=== PATIENT | male | born 1950 | race Caucasian/White ===

== ENCOUNTER 2016-09-28 22:04 | Emergency (ER) | payer OTHER ==
[~2016-09-28 22:04] MED LIST: *UNABLE1; AMARYL4 PO; ASAB PO; BYETTA10 SC; CEFT5 PO; COREG25 PO; CRESTOR5 MG PO; CYANO1000T PO; DSS PO; FLOMAX4 PO; GLUCOPHAGE1000 MG PO; GLUCOTROL5 PO; GLUCPH PO; KLOR-CON 1010 MEQ PO; KLOR-CON M2020 MEQ PO; L20 PO; L40 PO; LEVEMIR SC; LEVOTHYROXIN50 MCG PO; LISINOPRIL40 MG PO; LORT7 PO; MONO20 PO; MUSCLE RUB TOP; NEUR100 PO; NORCO1 TA2 PO; NOVOLOG SC; PRIM250 PO; PRIN10 PO; PRIN20 PO; SIN25 PO; SINCR25100 PO; STARLIX120 PO; STARLIX60 PO; SYN.05 PO; VICODIN ES1 TAB PO; VITAMIN D31000 UNIT PO; VYTORIN 10/20 T1 TAB PO; ZOCOR40 PO; ZOL100 PO; ZOL50 PO; [UNRECOGNIZED DRUG - CODE] PO
[2016-09-28 22:28] LABS: INTERNATIONAL NORMAL RATI 1.1 UNITS (-); PARTIAL THROMBO TIME 27.8 SEC (22.5-37.2); PROTIME (NOT ORD) 13.8 SEC (12.0-14.5)
[2016-09-28 22:37] LABS: CALCIUM, SERUM 8.9 MG/DL (8.5-10.4); CHEST PAIN PROFILE TAT 0 Hrs 22 Mins; CHLORIDE, SERUM 102 MMOL/L (96-112); CO2 (CARBON DIOXIDE) 27 MMOL/L (24-34); CREATININE 0.82 MG/DL (0.70-1.30); GFR AFRICAN AMERICAN 108 ML/MIN (>=60); GFR NON AFRICAN AMERICAN 93 ML/MIN (>=60); POTASSIUM, SERUM 4.2 MMOL/L (3.5-5.3); SODIUM, SERUM 136 MMOL/L (135-148); TROPONIN I <0.02 NG/ML (<0.05)
[2016-09-28 22:39] LABS: BUN (BLOOD UREA NITROGEN) 29 MG/DL (6-23); GLUCOSE, SERUM 273 MG/DL (60-99)
[2016-09-28 23:45] LABS: BASOPHILS 0.5 %; BASOPHILS ABSOLUTE 0.04 10/3/uL (0.0-0.16); EOSINOPHILS 2.3 %; EOSINOPHILS ABSOLUTE 0.18 10/3/uL (0.0-0.53); IMMATURE GRANULOCYTES 0.1 %; IMMATURE GRANULOCYTES ABSOLUTE 0.01 10/3/uL (0.0-0.11); LYMPHOCYTES 21.2 %; LYMPHOCYTES ABSOLUTE 1.66 10/3/uL (0.67-4.30); MEAN CORPUSCULAR HEMOGLOB 29.8 pg (26.0-34.0); MEAN PLATELET VOLUME 9.9 fL (9.2-13.0); MONOCYTES 8.4 %; MONOCYTES ABSOLUTE 0.66 10/3/uL (0.21-1.20); NEUTROPHILS 67.5 %; NEUTROPHILS ABSOLUTE 5.27 10/3/uL (2.02-8.40); PLATELET COUNT 194 10/3/uL (150-400); RBC DISTRIBUTION WIDTH 13.8 % (12.0-16.0); RED CELL COUNT 4.49 10/6/uL (4.7-6.1); WHITE BLOOD CELLS 7.8 10/3/uL (4.5-10.5)
[2016-09-28 23:46] LABS: ER CBC TAT 1 Hrs 30 Mins; HEMATOCRIT 39.8 % (40.0-51.0); HEMOGLOBIN 13.4 g/dL (13.6-17.8); MANUAL DIFF NO %; MEAN CORPUS HGB CONC 33.7 g/dL (32.0-36.0); MEAN CORPUSCULAR VOLUME 88.6 fL (80-100)
[2016-10-04] MEDS ORDERED: ZOL100 PO (14:46)
[2016-10-04] MEDS ORDERED: PRIN20 PO (14:46)
[2016-10-04] MEDS ORDERED: STARLIX60 PO (14:46)
[2016-10-04] MEDS ORDERED: GLUCOTROL5 PO (14:47)
[2016-10-04] MEDS ORDERED: NEUR100 PO (14:47)
[2016-10-04] MEDS ORDERED: ASAB PO (14:47)
[2016-10-04] MEDS ORDERED: L20 PO (14:47)
[2016-10-04] MEDS ORDERED: SIN25 PO (14:48)
[2016-10-04] MEDS ORDERED: KLOR-CON M2020 MEQ PO (14:48)
[2016-10-04] MEDS ORDERED: PROSCAR5 PO (14:48)
[2016-10-04] MEDS ORDERED: CRESTOR5 MG PO (14:48)
[2016-10-04] MEDS ORDERED: LEVOTHYROXIN50 MCG PO (14:48)
[2016-10-04] MEDS ORDERED: LEVEMIR SC (14:49)
[2016-10-04] MEDS ORDERED: FLOMAX4 PO (14:49)
== END 2016-09-29 06:30 | disposition home or self-care (01) ==
LOC: ER 22:04
PROVIDERS: Emergency Medicine
DX: Z04.3 Encounter for examination and observation following other accident (principal); E11.9 Type 2 diabetes mellitus without complications; I10 Essential (primary) hypertension; Z86.73 Personal history of transient ischemic attack (TIA), and cerebral infarction without residual deficits; Z88.0 Allergy status to penicillin; Z79.82 Long term (current) use of aspirin; Z79.4 Long term (current) use of insulin; Z79.899 Other long term (current) drug therapy
CPT/HCPCS: 70450; 71010; 72125; 80048; 83735; 83880; 84484; 85025; 85610; 85730; 99285

== ENCOUNTER 2016-10-04 15:13 | Inpatient (IN) | payer OTHER ==
--- NOTE | ~2016-10-04 | HP ---
History And Physical [id number] [place]. [address] NAME: VALENTINA OREILLY : 52 STATUS : ADM IN [facility]#: [id number] AGE: 65 ADM/REG DATE : 10/04/16 MR#: [id number] REPORT SERV DATE: 10/04/16 DICTATED BY: ORAL SOW DATE: 10/04/16 REPORT STATUS : Draft TRANSCRIBED BY: MODL DATE: 10/04/16 DATE OF ADMISSION: 10/04/2016 HISTORY OF PRESENT ILLNESS: Mr. Oreilly is a very pleasant 65-year-old male, who basically was staying at home on his own, living alone, but for the last week, he had several falls at home on several visits to the [facility] emergency room secondary to weakness and falls. He was brought to [facility] emergency room on 09/28/2016 secondary to fall on 09/29/2016 and today, he was referred by social media director for weakness. He was at home after he fell, he was lying on the floor, and he urinated himself and there is urine smell even in the room. He saw Dr. Bose today and she recommended the patient to come to the hospital, and also after hospitalization, he will need to go to rehabilitation or placement. This was the plan since he cannot stay now alone. The patient reported when he fell he did not lose his consciousness. He was awake, he was dizzy, and he has chronic dizziness for years. His blood sugar has been controlled. Recently, he denied any chest pain or shortness of breath. He is complaining of tremor, and he said prior when he was at [facility], he had this tremor and he was placed on carbidopa/levodopa, although he did not have a diagnosis of Parkinson disease. He has tremor at rest as well as when he does some movements. OTHER MEDICAL PROBLEMS: Include cerebrovascular accident in 2014 with left-sided weakness which has resolved, hyperlipidemia, osteoarthritis, history of patent foramen ovale, hypothyroidism, obesity, history of syncopal or presyncopal spells accompanied with dizziness. On previous hospitalization, also it was mentioned that he never lost his consciousness before, history of hypertension, multiple hospitalization as well as at the [facility] in 12/2015, history of UTI in the past, history of cystoscopy for urethral stenosis done last year per Dr. Garza includes surgical history as well as history of cholecystectomy. Also, the patient has history of subclavian head enlargement versus mass on the right side according to records of Dr. Carlitos Montejo, dictated on 05/29/2014 in our computer and it was mentioned there that it is followed by Dr. Bose. FAMILY HISTORY: Positive for heart disease and cerebrovascular accidents. ALLERGIES: HE IS ALLERGIC TO PENICILLIN. SOCIAL HISTORY: The patient does not smoke. No alcohol. No recreational drug use. He is a . He lives by himself. HOME MEDICATIONS: Include aspirin 81 mg a day, carbidopa/levodopa 25/100 three times a day, finasteride 5 mg a day, furosemide 20 mg daily p.r.n., Neurontin 100 mg daily, glipizide 5 mg p.o. daily, Levemir 44 units at bedtime, levothyroxine 50 mcg a day, lisinopril 20 mg a day, Nateglinide 60 mg three times a day, potassium chloride 20 mEq daily, Crestor 5 mg a day, Zoloft 100 mg a day, and Flomax 0.4 mg a day. REVIEW OF SYSTEMS: History And Physical [address] [address] NAME: VALENTINA OREILLY : 52 STATUS : ADM IN [facility]#: [id number] AGE: 65 ADM/REG DATE : 10/04/16 MR#: [id number] REPORT SERV DATE: 10/04/16 DICTATED BY: ORAL SOW DATE: 10/04/16 REPORT STATUS : Draft TRANSCRIBED BY: CHERELLE DATE: 10/04/16 A 14-point review of systems done and negative except what is stated in the history of present illness. PHYSICAL EXAMINATION: GENERAL: Obese male, not in acute distress, resting quietly. VITAL SIGNS: His initial blood pressure was 158/61, temperature 98.2, heart rate 73, respiratory rate 14, oxygen saturation 97% on room air. HEENT: Head, atraumatic, normocephalic. Conjunctivae clear. Pupils are equal and reactive to light and accommodation. Extraocular muscles are intact. NECK: Supple. Trachea is midline. No supraclavicular or cervical lymphadenopathy. LUNGS: Diminished breath sounds bilaterally. Decreased respiratory effort secondary to obesity. CARDIOVASCULAR: Regular rate and rhythm. Point of maximal impulse not displaced. ABDOMEN: Obese, soft, nontender, nondistended. Positive normoactive bowel sounds. EXTREMITIES: No clubbing, cyanosis, or edema. NEUROLOGIC: Cranial nerves III through XII are grossly intact. Muscle strength is 5/5 bilaterally on upper extremities and 5/5 on the left lower extremity and 3+/5 on the right lower extremity. The patient reported that long time ago he had trauma on that leg and he had a bone graft when he was a child, since that time, the leg is weak. There is tremor at rest as well as on movement. This is worsening when he moves according to the patient. PSYCHIATRIC: Normal mood and affect. LABORATORY RESULTS: His sodium 139, potassium 4.1, chloride 105, carbon dioxide 28, BUN 27, creatinine 0.86, blood sugar 244, magnesium 2. Troponin less than 0.02. His BNP was checked on 09/28/2016, it was 37.7. White count 6.7, hemoglobin 13, hematocrit 38.4, platelet count 211. PT 14.3, INR 1.1. UA did not show any evidence of urinary infection. Chest x-ray was done on 09/28/2016 on his first visit to the emergency room. No focal airspace consolidation. No any abnormality. Cervical spine CT was done on 09/28/2016 on his first visit to the emergency room. It reveals no evidence of acute traumatic injury to the cervical spine, partially visualized bilateral supraclavicular adenopathy, measuring 5-4 cm on the right. This has enlarged from 3 to 2.5 cm in 2013. Current left-sided supraclavicular adenopathy, appears new since 2013. Further evaluation will be CT of the chest with IV contrast was recommended. These findings and recommendation were discussed with Dr. Bose via phone. Asymmetric increased soft tissue density, abutting the medial head of the right clavicle potentially pannus fairly similar to prior 2013 examination with underlying sternoclavicular joint degenerative changes. CT of the brain without contrast on 09/28, no acute intracranial abnormality. Mild cortical volume loss and findings compatible with mild chronic deep white matter ischemic changes. Old right periventricular white matter infarction, unchanged chronic right maxillary sinus disease. EKG on this patient showed normal sinus rhythm with a rate of 66 beats per minute, left axis deviation, left ventricular hypertrophy with mild widening of QRS complexes. Also, a second EKG was done at 1415 hours, which did not show any acute abnormality on the left axis deviation. On the first EKG which was done earlier, it showed questionable lateral injury to the chest, but it was inconsistent, it was evaluated by emergency room physician, Dr. Jones and the patient had same changes on the EKG which were on 12/15/2015 and his first troponin is negative. History And Physical [address] [address] NAME: VALENTINA OREILLY : 52 STATUS : ADM IN PAT#: [id number] AGE: 65 ADM/REG DATE : 10/04/16 MR#: [id number] REPORT SERV DATE: 10/04/16 DICTATED BY: ORAL SOW DATE: 10/04/16 REPORT STATUS : Draft TRANSCRIBED BY: CHERELLE DATE: 10/04/16 ASSESSMENT AND PLAN: 1. A 65-year-old male with past medical history of stroke as well as history of dizziness, history of multiple presyncopal episodes in the past, history of diabetes, history of bilateral supraclavicular lymphadenopathy, enlarged on the right , history of cerebrovascular accident in the past, presented with increased frequency of falls and weakness and basically he needs placement after his workup will be finished. 2. His blood pressure fluctuates, initially it was 150/60 in the emergency room, now systolic blood pressure is in 90s. We are going to give him gentle IV fluid hydration and we are going to check his blood pressure. If it will be low, we will hold his blood pressure medications. In the same time, we will check his orthostatics. 3. Tremor, question if he has Parkinson disease. He is on carbidopa/levodopa, which [facility], but he does not have diagnosis of Parkinson disease. We will ask Neurology to evaluate this. 4. Balance problems, which could be also related to Parkinson's. 5. Diabetes mellitus. We will check his hemoglobin A1c and continue his antidiabetic medications. We will do Accu-Cheks. 6. History of cerebrovascular accident in the past, but he does not have any significant neurological deficit. He recovered his CVA. 7. Bilateral supraclavicular adenopathy, present since 2012. On recent CT scan, there are enlarged lymph nodes on the right side. This was discussed with Dr. Bose according to Radiology report of Dr. Rojas. We will order records from Dr. Bose and also now which is closed by my partner, can consider to call Dr. Bose to discuss and there is a plan to do any additional workup regarding this adenopathy. 8. We will also order physical therapy. We will check his troponins. We will check his TSH and repeat his EKG and my partner will see this patient starting tomorrow morning. MG/MODL Oral Sow M.D. / [id number] CC: Allison Bose M.D.
--- NOTE | ~2016-10-04 | DS ---
Discharge Summary [facility] [address] [place]. [address] NAME: VALENTINA AMADOR : 52 STATUS : DIS IN PAT#: [id number] AGE: 65 ADM/REG DATE : 10/04/16 MR#: [id number] REPORT SERV DATE: 10/13/16 DICTATED BY: GREG ABRAHAM DATE: 10/12/16 REPORT STATUS : Draft TRANSCRIBED BY: MODL DATE: 10/12/16 ADMISSION DATE: 10/04/2016 DISCHARGE DATE: 10/12/2016 DISCHARGE DIAGNOSES: 1. Frequent falls, needing rehab. 2. Parkinson disease. 3. Hypoxic respiratory failure, with probable underlying obstructive sleep apnea. 4. Morbid obesity. 5. Hypertension. 6. Diabetes. 7. History of cerebrovascular accidents without residual deficits. 8. Bilateral supraclavicular adenopathy, status post biopsy of the right side, pathology is negative for malignancy, it is actually more suggestive of seroma. CONSULTANTS: Neurology. PROCEDURES: CT-guided biopsy of the right supraclavicular mass on 10/09/2016. HOSPITAL COURSE: This is a 65-year-old gentleman who was admitted to the hospital with frequent falls. For details, please refer to excellent H and P by Dr. Savannah Castillo. In summary, the patient was admitted and was focused on supportive care with physical therapy. The patient was seen and evaluated by Neurology who recommended strengthening exercises as well as continuing his regimen for Parkinson disease. The patient actually did well with physical therapy who recommended discharging patient to a nursing home facility. The patient was also worked up for possible lymphoma given bilateral supraclavicular mass lesions. Notably, they have been present there since 2012 with minimal change in size. However, it was went ahead and biopsied with a CT-guided biopsy. The biopsy results came back as negative for malignancy, it was also negative for amyloid tissue and it is most likely a benign seroma. This will be followed with his primary care physician. Also, the patient developed acute hypoxic respiratory failure during this hospital stay. This was most likely an unmasked obstructive sleep apnea and obesity hypoventilation syndrome. The patient was worked up for possible pneumonia as well as PE with chest x-rays and CT scans which were negative. The patient's nighttime pulse oximetry was very highly suggestive of obstructive sleep apnea. The patient will benefit most from outpatient sleep study for CPAP. The patient did admit to having had CPAP in the past. After above acute issues have been addressed, the patient is now being discharged to a nursing home facility up in [facility] for patient to be closer to his parents where he will be monitored very closely. The patient is also being discharged home with close outpatient followup instructions. DISCHARGE DISPOSITION: [facility]. Discharge Summary [address] [address] NAME: VALENTINA AMADOR : 52 STATUS : DIS IN PAT#: [id number] AGE: 65 ADM/REG DATE : 10/04/16 MR#: [id number] REPORT SERV DATE: 10/13/16 DICTATED BY: GREG ABRAHAM DATE: 10/12/16 REPORT STATUS : Draft TRANSCRIBED BY: CHERELLE DATE: 10/12/16 DISCHARGE MEDICATIONS: No changes. FOLLOWUP: Please follow up with PCP in the next one to two weeks. A total of 40 minutes spent in coordinating this patient's discharge today. DICTATED BY: Greg Abraham MD Oz/CHERELLE Greg Abraham MD / [id number] CC: MD Allison Wang M.D.
--- NOTE | ~2016-10-04 | PUL ---
[facility] [address] [place]. [address] NAME: VALENTINA AMADOR : 52 STATUS : ADM IN PAT#: [id number] AGE: 65 ADM/REG DATE : 10/04/16 MR#: [id number] REPORT SERV DATE: 10/12/16 DICTATED BY: TEJA VELASQUEZ IV DATE: 10/11/16 REPORT STATUS : Draft TRANSCRIBED BY: MODL DATE: 10/11/16 PULMONARY FUNCTION TEST OVERNIGHT OXIMETRY FINDINGS: Study was initiated on room air; however, the patient had persistently low saturations for more than 5 minutes for which 4 L of supplemental oxygen was provided. It appears that the remainder of the study was performed on 4 L. Six hours and 1 minute of data available for review. The mean oxygen saturation was 90.7%. Lowest scored saturation was 77%. The patient spent 40 minutes and 40 seconds with oxygen saturations less than 88%. There were periods of oxygen saturation variation of sawtooth pattern that varied by significantly more than 4%. These events did appear to be clustered. It was during these events that the significant desaturations occurred after applying supplemental oxygen. IMPRESSION: Significant nocturnal hypoxemia even on 4 L of supplemental oxygen. There was a pattern consistent with obstructive sleep apnea that was believed to be mild based on a desaturation index of 12 per hour. I would suggest continuing supplemental oxygen at nighttime and obtaining a formal polysomnography. ELIZA/CHERELLE Teja Velasquez IV, M.D. / [id number] CC: MD Allison Wang M.D.
--- NOTE | ~2016-10-04 | CN ---
Consultation Report [facility] [address] [place]. [address] NAME: VALENTINA AMADOR : 52 STATUS : ADM IN PAT#: [id number] AGE: 65 ADM/REG DATE : 10/04/16 MR#: [id number] REPORT SERV DATE: 10/05/16 DICTATED BY: ALKA RODRIGUEZ DATE: 10/05/16 REPORT STATUS : Draft TRANSCRIBED BY: MODL DATE: 10/05/16 NEUROLOGY CONSULTATION DATE OF CONSULTATION: 10/05/2016 REASON FOR CONSULTATION: Frequent falls. HISTORY OF PRESENT ILLNESS: The patient is a 65-year-old male who had a stroke with resultant left hemiparesis in 2014. Since that time, he mentions that he has had falls approximately 2-3 times a month. He always falls backwards. He denies any vertiginous symptoms associated with this however. He is usually standing up for a period of time and feels imbalanced and somewhat faint. He went to rehab at [facility] and was evaluated there by one of the psychiatrist. He was told that he had a rest tremor in one of his arms and was placed on carbidopa/levodopa. This seemed to help somewhat. Still during the day, he will notice that he has a tremor in one or both arms, but does not find this particularly bothersome. He does mention that he had difficulty swallowing after his stroke, but through intensive rehab seems to do fine now. He does use a walker with hand brakes and large rolling wheels for stabilization. Over the last 2-3 weeks, the patient has been falling more frequently. He fell three times last week. PAST MEDICAL HISTORY: Stroke in 2014 with resultant left-sided weakness, hyperlipidemia, osteoarthritis, patent foramina ovale, hypothyroidism, morbid obesity, presyncopal spells, "dizziness," hypertension, urinary tract infections, urethral stenosis, subclavian head enlargement versus mass, diabetes mellitus type 2, depression, tremor, BPH, and osteoarthritis. PAST SURGICAL HISTORY: Status post urethral stent placement, cholecystectomy, and cystoscopy. HOME MEDICATION: List includes: Aspirin 81 mg daily, Sinemet 25/100 mg t.i.d., Proscar 5 mg daily, Lasix 20 mg daily, Neurontin 100 mg at bedtime, Glucotrol 5 mg daily, Levemir 44 units subcu at bedtime, levothyroxine 50 mcg daily, Prinivil 20 mg daily, Starlix 60 mg t.i.d., Klor-Con 20 mEq daily, Crestor 5 mg daily, Zoloft 100 mg daily, and Flomax 0.8 mg daily. ALLERGIES: PENICILLIN. SOCIAL HISTORY: The patient is a . He lives alone. His little Eliana dog in the spring. 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 He does not smoke, drink alcohol, or use recreational drugs. FAMILY HISTORY: The patient's mother is alive, she is 84. His father is 87 and alive, but Consultation Report [address] [place]. [address] NAME: VALENTINA AMADOR : 52 STATUS : ADM IN [facility]#: [id number] AGE: 65 ADM/REG DATE : 10/04/16 MR#: [id number] REPORT SERV DATE: 10/05/16 DICTATED BY: ALKA RODRIGUEZ DATE: 10/05/16 REPORT STATUS : Draft TRANSCRIBED BY: CHERELLE DATE: 10/05/16 he has cancer with mets. He is the only child. REVIEW OF SYSTEMS: Please see HPI for pertinent positives. PHYSICAL EXAMINATION: VITAL SIGNS: The patient is a 65-year-old male, who stands 6 feet 1 inch tall and weighs 348 pounds. He is afebrile, heart rate 62, respiratory rate 16, O2 saturations on room air of 93%, blood pressure 131/84. NEURO: The patient is alert. He is oriented x4, pleasant, communicates appropriately. Speech is clear. Language is fluent. He does have slight hypomimia. Diminished blink reflex. Pupils are 3 mm. PERRLA. He does have a left-sided facial droop. No tongue deviation. No reported sensory deficits. Vision via confrontation is full in both [place]. He does have ataxia with [id number] on the left. No pronator drift. No dysmetria or asterixis. Slight rest tremor noted bilaterally, more prominent on the left than the right. He does have rigidity and slight cogwheeling noted on the left, none on the right. Upper extremity strength is 4/5 bilaterally. DTRs are 1+ on the left and unelicitable on the right. No reported sensory deficits in the upper extremities. Lower extremity strength is 4/5 bilaterally. Difficulty eliciting DTRs in the lower extremities. He has hammertoes bilaterally. Diminished vibratory temperature and light touch sensation from the toes to above the ankles. Position sense is intact however. I did not get the patient up to ambulate, he is a total assist. NECK: No carotid bruits, JVD, or thyromegaly. CHEST: Lung sounds are clear. CARDIAC: Regular rate and rhythm. LABORATORY DATA: CBC is normal. BMP normal except the glucose 229. A1c is 9.9. Urinalysis is negative for UTI. CT of the brain, no acute changes. ASSESSMENT/PLAN: 1. Frequent falls, this is multifactorial in nature. a. The patient had a stroke in 2014. I will repeat an MRI of the brain and C- spine without gadolinium. He will also have an MRA of the head and neck with gadolinium and echocardiogram with bubble study. I will keep him on his aspirin 81 mg daily, and his Crestor 5 mg at bedtime at this point. This may change according to his diagnostic findings. b. 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 He will stay on carbidopa/levodopa 25/100 mg t.i.d. I will add Requip 0.25 mg p.o. q.8 hours watching his blood pressure closely making sure his orthostasis does not worsen. PT/OT and Speech Therapy will be consulted. He will also follow up with Neurology on an outpatient basis. c. Peripheral neuropathy. The patient's cause of neuropathy is most likely diabetes. He will need diabetic education prior to discharge. Further lab work will be checked and his Neurontin will be increased to 200 mg p.o. at bedtime. Thank you again for including us in consultation. We will follow with you. Consultation Report [id number] [facility] [place]. [address] NAME: VALENTINA AMADOR : 52 STATUS : ADM IN [facility]#: [id number] AGE: 65 ADM/REG DATE : 10/04/16 MR#: [id number] REPORT SERV DATE: 10/05/16 DICTATED BY: ALKA RODRIGUEZ DATE: 10/05/16 REPORT STATUS : Draft TRANSCRIBED BY: CHERELLE DATE: 10/05/16 SHELIA/CHERELLE Alka Rodriguez DNP, [facility] / [id number] CC: Jose Daniel Carlson M.D.
[2016-10-04 14:15] LABS: BASOPHILS 0.4 %; BASOPHILS ABSOLUTE 0.03 10/3/uL (0.0-0.16); EOSINOPHILS 3.1 %; EOSINOPHILS ABSOLUTE 0.21 10/3/uL (0.0-0.53); ER CBC TAT 0 Hrs 05 Mins; HEMATOCRIT 38.4 % (40.0-51.0); IMMATURE GRANULOCYTES 0.1 %; IMMATURE GRANULOCYTES ABSOLUTE 0.01 10/3/uL (0.0-0.11); LYMPHOCYTES 21.6 %; LYMPHOCYTES ABSOLUTE 1.45 10/3/uL (0.67-4.30); MANUAL DIFF NO %; MEAN CORPUS HGB CONC 33.9 g/dL (32.0-36.0); MEAN CORPUSCULAR HEMOGLOB 29.7 pg (26.0-34.0); MEAN CORPUSCULAR VOLUME 87.7 fL (80-100); MEAN PLATELET VOLUME 10.5 fL (9.2-13.0); MONOCYTES 7.5 %; NEUTROPHILS 67.3 %; NEUTROPHILS ABSOLUTE 4.51 10/3/uL (2.02-8.40); PLATELET COUNT 211 10/3/uL (150-400); RBC DISTRIBUTION WIDTH 13.9 % (12.0-16.0); RED CELL COUNT 4.38 10/6/uL (4.7-6.1); WHITE BLOOD CELLS 6.7 10/3/uL (4.5-10.5)
[2016-10-04 14:22] LABS: INTERNATIONAL NORMAL RATI 1.1 UNITS (-); PARTIAL THROMBO TIME 29.1 SEC (22.5-37.2); PROTIME (NOT ORD) 14.3 SEC (12.0-14.5)
[2016-10-04 14:31] LABS: BUN (BLOOD UREA NITROGEN) 27 MG/DL (6-23); CHEST PAIN PROFILE TAT 0 Hrs 21 Mins; CHLORIDE, SERUM 105 MMOL/L (96-112); CO2 (CARBON DIOXIDE) 28 MMOL/L (24-34); CREATININE 0.86 MG/DL (0.70-1.30); GFR AFRICAN AMERICAN 106 ML/MIN (>=60); GFR NON AFRICAN AMERICAN 92 ML/MIN (>=60); GLUCOSE, SERUM 244 MG/DL (60-99); POTASSIUM, SERUM 4.1 MMOL/L (3.5-5.3); SODIUM, SERUM 139 MMOL/L (135-148); TROPONIN I <0.02 NG/ML (<0.05)
[2016-10-04 15:11] LABS: ASCORBIC ACID (UR NOT ORDER) NEG (NEG); BILIRUBIN, URINE NEGATIVE (NEG); ER URINALYSIS TAT 0 Hrs 11 Mins; KETONE, URINE 20 MG/DL (NEG); LEUKOCYTE ESTERASE(NOT OR NEG (NEG); NITRITE (URINE) NEG (NEG); WBC (NOT ORDERED) (RFLEX) 1 (0-5)
[~2016-10-04 15:13] MED LIST changes: +PROSCAR5 PO
[2016-10-04 20:53] LABS: TROPONIN I <0.02 NG/ML (<0.05)
[2016-10-05 06:30] LABS: BASOPHILS 0.6 %; BASOPHILS ABSOLUTE 0.03 10/3/uL (0.0-0.16); EOSINOPHILS 4.9 %; EOSINOPHILS ABSOLUTE 0.26 10/3/uL (0.0-0.53); HEMATOCRIT 37.8 % (40.0-51.0); HEMOGLOBIN 12.6 g/dL (13.6-17.8); IMMATURE GRANULOCYTES 0.2 %; IMMATURE GRANULOCYTES ABSOLUTE 0.01 10/3/uL (0.0-0.11); LYMPHOCYTES 32.1 %; LYMPHOCYTES ABSOLUTE 1.71 10/3/uL (0.67-4.30); MEAN CORPUS HGB CONC 33.3 g/dL (32.0-36.0); MEAN CORPUSCULAR HEMOGLOB 29.9 pg (26.0-34.0); MEAN CORPUSCULAR VOLUME 89.8 fL (80-100); MEAN PLATELET VOLUME 9.7 fL (9.2-13.0); MONOCYTES 8.4 %; MONOCYTES ABSOLUTE 0.45 10/3/uL (0.21-1.20); NEUTROPHILS 53.8 %; NEUTROPHILS ABSOLUTE 2.87 10/3/uL (2.02-8.40); PLATELET COUNT 174 10/3/uL (150-400); RBC DISTRIBUTION WIDTH 14.2 % (12.0-16.0); RED CELL COUNT 4.21 10/6/uL (4.7-6.1); WHITE BLOOD CELLS 5.3 10/3/uL (4.5-10.5)
[2016-10-05 06:37] LABS: MANUAL DIFF NO %
[2016-10-05 06:48] LABS: CALCIUM, SERUM 8.5 MG/DL (8.5-10.4); CHLORIDE, SERUM 108 MMOL/L (96-112); CO2 (CARBON DIOXIDE) 29 MMOL/L (24-34); CREATININE 0.69 MG/DL (0.70-1.30); GFR AFRICAN AMERICAN 116 ML/MIN (>=60); GFR NON AFRICAN AMERICAN 100 ML/MIN (>=60); GLUCOSE, SERUM 229 MG/DL (60-99); SODIUM, SERUM 142 MMOL/L (135-148); TROPONIN I <0.02 NG/ML (<0.05)
[2016-10-05 06:49] LABS: BUN (BLOOD UREA NITROGEN) 21 MG/DL (6-23)
[2016-10-05 14:38] LABS: TRIGLYCERIDE 129 MG/DL (< 150)
[2016-10-05 14:40] LABS: CHOL/HDL RATIO(NOT ORDER) 5.1 (0-5); CHOLESTEROL 177 MG/DL (< 200); FOLATE 9.8 NG/ML (>5.2); HDL CHOLESTEROL 35 MG/DL (> 39); LDL CHOLESTEROL 117 MG/DL (< 130); NON-HDL CHOLESTEROL 142 MG/DL (< 160)
[2016-10-06 06:06] LABS: BASOPHILS 0.2 %; BASOPHILS ABSOLUTE 0.01 10/3/uL (0.0-0.16); EOSINOPHILS 4.4 %; EOSINOPHILS ABSOLUTE 0.27 10/3/uL (0.0-0.53); HEMATOCRIT 36.8 % (40.0-51.0); HEMOGLOBIN 12.3 g/dL (13.6-17.8); LYMPHOCYTES 30.4 %; LYMPHOCYTES ABSOLUTE 1.85 10/3/uL (0.67-4.30); MEAN CORPUS HGB CONC 33.4 g/dL (32.0-36.0); MEAN CORPUSCULAR HEMOGLOB 29.6 pg (26.0-34.0); MEAN CORPUSCULAR VOLUME 88.5 fL (80-100); MEAN PLATELET VOLUME 9.9 fL (9.2-13.0); MONOCYTES 7.7 %; MONOCYTES ABSOLUTE 0.47 10/3/uL (0.21-1.20); NEUTROPHILS 57.3 %; NEUTROPHILS ABSOLUTE 3.48 10/3/uL (2.02-8.40); PLATELET COUNT 172 10/3/uL (150-400); RBC DISTRIBUTION WIDTH 14.2 % (12.0-16.0); RED CELL COUNT 4.16 10/6/uL (4.7-6.1); WHITE BLOOD CELLS 6.1 10/3/uL (4.5-10.5)
[2016-10-06 06:11] LABS: MANUAL DIFF NO %
[2016-10-06 06:16] LABS: BUN (BLOOD UREA NITROGEN) 14 MG/DL (6-23); CALCIUM, SERUM 8.5 MG/DL (8.5-10.4); CHLORIDE, SERUM 109 MMOL/L (96-112); CO2 (CARBON DIOXIDE) 30 MMOL/L (24-34); CREATININE 0.58 MG/DL (0.70-1.30); GFR AFRICAN AMERICAN 125 ML/MIN (>=60); GFR NON AFRICAN AMERICAN 108 ML/MIN (>=60); GLUCOSE, SERUM 133 MG/DL (60-99); POTASSIUM, SERUM 3.8 MMOL/L (3.5-5.3); SODIUM, SERUM 144 MMOL/L (135-148)
[2016-10-08 10:38] LABS: BUN (BLOOD UREA NITROGEN) 15 MG/DL (6-23); CALCIUM, SERUM 8.9 MG/DL (8.5-10.4); CHLORIDE, SERUM 108 MMOL/L (96-112); CO2 (CARBON DIOXIDE) 28 MMOL/L (24-34); CREATININE 0.73 MG/DL (0.70-1.30); GFR AFRICAN AMERICAN 114 ML/MIN (>=60); GFR NON AFRICAN AMERICAN 98 ML/MIN (>=60); GLUCOSE, SERUM 214 MG/DL (60-99); POTASSIUM, SERUM 4.3 MMOL/L (3.5-5.3); SODIUM, SERUM 141 MMOL/L (135-148)
[2016-10-09 05:21] LABS: BASOPHILS 0.4 %; BASOPHILS ABSOLUTE 0.03 10/3/uL (0.0-0.16); EOSINOPHILS 4.9 %; EOSINOPHILS ABSOLUTE 0.34 10/3/uL (0.0-0.53); HEMATOCRIT 37.5 % (40.0-51.0); HEMOGLOBIN 12.2 g/dL (13.6-17.8); IMMATURE GRANULOCYTES 0.1 %; IMMATURE GRANULOCYTES ABSOLUTE 0.01 10/3/uL (0.0-0.11); LYMPHOCYTES 21.9 %; LYMPHOCYTES ABSOLUTE 1.51 10/3/uL (0.67-4.30); MEAN CORPUS HGB CONC 32.5 g/dL (32.0-36.0); MEAN CORPUSCULAR HEMOGLOB 29.5 pg (26.0-34.0); MEAN CORPUSCULAR VOLUME 90.6 fL (80-100); MEAN PLATELET VOLUME 10.2 fL (9.2-13.0); MONOCYTES 10.4 %; MONOCYTES ABSOLUTE 0.72 10/3/uL (0.21-1.20); NEUTROPHILS 62.3 %; PLATELET COUNT 179 10/3/uL (150-400); RBC DISTRIBUTION WIDTH 14.4 % (12.0-16.0); RED CELL COUNT 4.14 10/6/uL (4.7-6.1); WHITE BLOOD CELLS 6.9 10/3/uL (4.5-10.5)
[2016-10-09 05:23] LABS: BUN (BLOOD UREA NITROGEN) 12 MG/DL (6-23); CALCIUM, SERUM 8.5 MG/DL (8.5-10.4); CHLORIDE, SERUM 106 MMOL/L (96-112); CO2 (CARBON DIOXIDE) 30 MMOL/L (24-34); CREATININE 0.58 MG/DL (0.70-1.30); GFR AFRICAN AMERICAN 125 ML/MIN (>=60); GFR NON AFRICAN AMERICAN 108 ML/MIN (>=60); POTASSIUM, SERUM 4.1 MMOL/L (3.5-5.3); SODIUM, SERUM 141 MMOL/L (135-148)
[2016-10-09 05:24] LABS: GLUCOSE, SERUM 149 MG/DL (60-99); MANUAL DIFF NO %
[2016-10-10 13:34] LABS: ALLENS TEST Pos; BE (BASE EXCESS) 3.5 MEQ/L (0 +/- 2.5); CARBOXYHEMOGLOBIN 0.5 % (0-3); HCO3 (ACTUAL BICARBONATE) 29.4 MEQ/L (23-27); HEMOBLOGIN CONTENT 14.2 G/DL (14-18); INSTRUMENT SERIAL # 35151; METHEMOGLOBIN 0.6 % (0-3); O2 CONTENT 16.4 VOL% (18-24); PCO2 (CO2 TENSION) 49 MMHG (35-45); PO2 (O2 TENSION) 46 MMHG (79-93); SAMPLE Arterial; pH 7.39 (7.37-7.43)
[2016-10-11 05:02] LABS: BUN (BLOOD UREA NITROGEN) 14 MG/DL (6-23); CALCIUM, SERUM 8.5 MG/DL (8.5-10.4); CHLORIDE, SERUM 105 MMOL/L (96-112); CO2 (CARBON DIOXIDE) 28 MMOL/L (24-34); CREATININE 0.65 MG/DL (0.70-1.30); GFR AFRICAN AMERICAN 119 ML/MIN (>=60); GFR NON AFRICAN AMERICAN 103 ML/MIN (>=60); POTASSIUM, SERUM 4.3 MMOL/L (3.5-5.3); SODIUM, SERUM 138 MMOL/L (135-148)
[2016-10-11 05:03] LABS: GLUCOSE, SERUM 193 MG/DL (60-99)
[2016-10-11 05:06] LABS: BASOPHILS 0.4 %; BASOPHILS ABSOLUTE 0.03 10/3/uL (0.0-0.16); EOSINOPHILS 5.4 %; EOSINOPHILS ABSOLUTE 0.38 10/3/uL (0.0-0.53); HEMATOCRIT 37.6 % (40.0-51.0); HEMOGLOBIN 12.3 g/dL (13.6-17.8); IMMATURE GRANULOCYTES 0.1 %; IMMATURE GRANULOCYTES ABSOLUTE 0.01 10/3/uL (0.0-0.11); LYMPHOCYTES 15.8 %; LYMPHOCYTES ABSOLUTE 1.11 10/3/uL (0.67-4.30); MEAN CORPUS HGB CONC 32.7 g/dL (32.0-36.0); MEAN CORPUSCULAR HEMOGLOB 29.9 pg (26.0-34.0); MEAN CORPUSCULAR VOLUME 91.3 fL (80-100); MEAN PLATELET VOLUME 10.2 fL (9.2-13.0); MONOCYTES 9.5 %; MONOCYTES ABSOLUTE 0.67 10/3/uL (0.21-1.20); NEUTROPHILS 68.8 %; NEUTROPHILS ABSOLUTE 4.83 10/3/uL (2.02-8.40); PLATELET COUNT 176 10/3/uL (150-400); RED CELL COUNT 4.12 10/6/uL (4.7-6.1)
[2016-10-11 05:07] LABS: MANUAL DIFF NO %
== END 2016-10-12 12:37 | DRG 40 ==
LOC: ER 15:13 → 6NO 17:12
PROVIDERS: Emergency Medicine; Hospitalist; Internal Medicine; Nurse Practitioner; Psychiatry & Neurology Neurology
PROC: BW211ZZ Computerized Tomography (CT Scan) of Abdomen and Pelvis using Low Osmolar Contrast (ICD-10-PCS; principal; 2016-10-08)
PROC: 07B13ZX Excision of Right Neck Lymphatic, Percutaneous Approach, Diagnostic (ICD-10-PCS; 2016-10-09)
DX: I69.398 Other sequelae of cerebral infarction (principal); J96.01 Acute respiratory failure with hypoxia; G21.8 Other secondary parkinsonism; E11.42 Type 2 diabetes mellitus with diabetic polyneuropathy; E78.5 Hyperlipidemia, unspecified; E03.9 Hypothyroidism, unspecified; R59.9 Enlarged lymph nodes, unspecified; M19.90 Unspecified osteoarthritis, unspecified site; Z87.440 Personal history of urinary (tract) infections; N40.1 Benign prostatic hyperplasia with lower urinary tract symptoms; N39.498 Other specified urinary incontinence; F32.9 Major depressive disorder, single episode, unspecified; E11.65 Type 2 diabetes mellitus with hyperglycemia; G47.33 Obstructive sleep apnea (adult) (pediatric); Z87.891 Personal history of nicotine dependence; Z88.0 Allergy status to penicillin; Z90.49 Acquired absence of other specified parts of digestive tract; Z79.82 Long term (current) use of aspirin; Z79.4 Long term (current) use of insulin; Z91.81 History of falling; Z82.3 Family history of stroke
CPT/HCPCS: 36600; 38505; 70360; 70544; 70548; 70551; 70553; 71010; 71260; 71275; 72141; 74178; 77012; 80048; 80061; 81001; 82272; 82306; 82533; 82607; 82746; 82805; 82962; 83036; 83735; 83921; 84153; 84443; 84484; 85025; 85610; 85730; 88305; 88313; 88333; 92523-GN; 92610-GN; 93005; 94762; 97110-GP; 97116-GP; 97163-GP; 97165-GO; 97535-GO; 99285; A9270-GY; A9577; C8929; J0360; J2250; J2405; J3010; Q9957; Q9967